=== PATIENT | male | born 1985 | race Caucasian/White ===

== ENCOUNTER 2021-02-08 11:47 | Emergency (ER) | payer MEDICAID ==
[~2021-02-08] VITALS: Ht 188 cm; Wt 95.0 kg
[2021-02-08] MEDS ORDERED: ACETAMINOPHEN WITH CODEINE 300/30MG TABLET PO ONE (12:15)
[2021-02-08] MEDS ORDERED: IBUP-2029 MT (13:58)
[2021-02-08 14:20] VITALS: BP 126/65
== END 2021-02-08 14:21 | disposition home or self-care (01) ==
LOC: ER 11:47
DX: S40.022A Contusion of left upper arm, initial encounter (principal); Y08.89XA Assault by other specified means, initial encounter; Y93.89 Activity, other specified; Y92.89 Other specified places as the place of occurrence of the external cause; Y99.8 Other external cause status
CPT/HCPCS: 73030; 73080; 73090; 99284